=== PATIENT | female | born 1950 | race Caucasian/White ===

== ENCOUNTER → 2020-04-06 15:19 | Outpatient (BNVA) | payer MEDICARE, OTHER, SELFPAY | PROVIDERS: Family Provider Nurse Practitioner; PCP Nurse Practitioner; Visit Provider Nurse Practitioner | DX: E78.2 Mixed hyperlipidemia (principal); I10 Essential (primary) hypertension; F41.9 Anxiety disorder, unspecified; E66.01 Morbid (severe) obesity due to excess calories | CPT/HCPCS: 80053; 80061; 81000 ==

== ENCOUNTER → 2020-10-15 08:26 | Outpatient (BNVA) | payer MEDICARE, SELFPAY | PROVIDERS: Family Provider Nurse Practitioner; PCP Nurse Practitioner; Visit Provider Nurse Practitioner | DX: I10 Essential (primary) hypertension (principal); E78.2 Mixed hyperlipidemia | CPT/HCPCS: 80053; 80061 ==

== ENCOUNTER → 2021-05-12 09:08 | Outpatient (BNVA) | payer MEDICARE, SELFPAY | PROVIDERS: Family Provider Nurse Practitioner; PCP Nurse Practitioner; Visit Provider Nurse Practitioner | DX: I10 Essential (primary) hypertension (principal) | CPT/HCPCS: 80053; 80061; 84443 ==

== ENCOUNTER → 2022-01-18 08:28 | Outpatient (BNVA) | payer MEDICARE, SELFPAY | PROVIDERS: Family Provider Nurse Practitioner; PCP Nurse Practitioner; Visit Provider Nurse Practitioner | DX: E78.2 Mixed hyperlipidemia (principal); I10 Essential (primary) hypertension; F41.9 Anxiety disorder, unspecified | CPT/HCPCS: 80053; 80061; 82306; 82607; 84443 ==

== ENCOUNTER 2022-02-14 06:40 | Outpatient (CLI) | payer MEDICARE, SELFPAY ==
--- NOTE | 2022-02-14 07:00 | USCV_ITS ---
Dunia Carmichael Age: 71 Gender: F : 1950 Exam Date: 02/14/2022 06:50 Ordering Phys: Guerda Corbett Technologist: TEETEE [place] [facility] [place]: RIght carotid bruit Risk Factors: Previous Vascular Surgery: Right Brachial BP: / Left Brachial BP: / Right Left Velocity (cm/s) Spectral Plaque Velocity (cm/s) Spectral Plaque Syst/Diast Broadening Syst/Diast Broadening 82.70/ 12.10 Prox CCA 87.60 / 17.50 78.80/ 12.50 Mid CCA 71.80 / 14.90 76.90/ 19.20 Distal CCA 59.10 / 17.80 62.50/ 17.30 Prox ICA 46.70 / 13.10 67.20/ 17.50 Mid ICA 104.80/ 25.40 92.00/ 31.50 Distal ICA 109.20/ 29.50 96.40 ECA 97.80 1.17 ICA/CCA 1.52 Antegrade Vertebral Antegrade 66.60/ 14.00 cm/s 40.20/ 12.00 cm/s Tri Subclavian Tri 74.50 111.7 0 CONCLUSIONS Right ICA stenosis <50%. Mild atheromatous plaque right carotid bulb/ICA. Left ICA stenosis <50%. Mild atheromatous plaque left carotid bulb/ICA. Normal antegrade Doppler flow noted in the right vertebral artery. Normal antegrade Doppler flow noted in the left vertebral artery. Ruel Ellington MD (Electronically Signed) Final Date: 14 Feb 2022 17:07 S
== END 2022-02-14 06:41 | disposition home or self-care (01) ==
LOC: RAD 06:40
PROVIDERS: PCP Nurse Practitioner; Visit Provider Nurse Practitioner
DX: R09.89 Other specified symptoms and signs involving the circulatory and respiratory systems (principal)
CPT/HCPCS: 93880

== ENCOUNTER 2022-08-22 10:57 | Outpatient (CLI) | payer MEDICARE, SELFPAY ==
[2022-08-22 11:31] LABS: Basophils # 0.1 10^3/uL (0.0-0.1); Basophils % 0.9 %; Eosinophils # 0.2 10^3/uL (0.0-0.8); Hemoglobin 13.3 g/dL (11.5-15.3); Lymphocytes # 2.2 10^3/uL (0.8-4.8); Lymphocytes % 28.8 %; Mean Corpuscular HGB Conc 32.4 g/dL (30.0-36.0); Mean Corpuscular Hemoglobin 29.4 pg (28.0-34.0); Mean Corpuscular Volume 90.7 fl (81-99); Mean Platelet Volume 10.2 fL (7.4-10.4); Monocytes # 0.5 10^3/uL (0.2-0.9); Monocytes % 6.2 %; Neutrophils # 4.61 10^3/uL (1.8-7.7); Nucleated Red Blood Cells % 0 %; Platelet Count 303 10^3/cmm (130-400); Red Blood Count 4.52 10^6/uL (4.1-5.3); Red Cell Distribution Width 13.3 % (12.1-15.1); White Blood Count 7.6 10^3/uL (4.0-10.0)
[2022-08-22 12:01] LABS: Alanine Aminotransferase 24 U/L (0-33); Alkaline Phosphatase 95 U/L (35-105); Anion Gap 13.1 (5-19); Aspartate Amino Transferase 21 U/L (0-32); Blood Urea Nitrogen 30 mg/dL (8-23); Calcium 9.5 mg/dL (8.5-10.5); Carbon Dioxide 27 mmol/L (22-29); Chloride 101 mmol/L (98-107); Chol HDL Ratio 4.84 mg/dL (0.0-4.40); Cholesterol 218 mg/dL (0-200); Globulin 3.2 g/dL (1.3-4.6); Glucose 93 mg/dL (65-115); HDL Cholesterol 45 mg/dL (60-100); LDL Cholesterol Calculated 128 mg/dL (50-129); Osmolality Calculated 290 mOsm/kg (285-295); Potassium 4.1 mmol/L (3.5-5.1); Sodium 137 mmol/L (136-145); Thyroid Stimulating Hormone 1.43 uIU/mL (0.27-4.20); Total Bilirubin 0.5 mg/dL (0.15-1.2); Total Protein 7.2 g/dL (6.6-8.7); Triglycerides 227 mg/dL (0-150); VLDL Cholestrol Calculation 45 mg/dL (0-30)
[2022-08-22 13:14] LABS: 25 Hydroxy Vitamin D 29 ng/mL (30-100)
== END 2022-08-22 10:58 | disposition home or self-care (01) ==
LOC: LAB 11:01
PROVIDERS: PCP Nurse Practitioner; Visit Provider Nurse Practitioner
DX: E55.9 Vitamin D deficiency, unspecified (principal); E78.2 Mixed hyperlipidemia; I10 Essential (primary) hypertension
CPT/HCPCS: 80053; 80061; 82306; 84443; 85025